=== PATIENT | male | born 1945 | race Caucasian/White ===

== ENCOUNTER 2018-10-23 13:12 | Observation (INO) | payer MEDICARE ==
--- NOTE | 2018-10-23 14:28 | EDM.PDOC ---
ED HPI GENERAL MEDICAL PROBLEM - General Chief Complaint: Abdominal Pain Stated Complaint: STOMACH IN PAIN PER PT Time Seen by Provider: 10/23/18 13:40 Source of Information: Reports: Patient, RN, RN Notes Reviewed History Limitations: Reports: No Limitations - History of Present Illness INITIAL COMMENTS - FREE TEXT/NARRATIVE: Pt to ER with c/o low abdominal pain which started this morning when he awoke. Patient states he feels he is constipated. States he has taken 5 stool softeners today, but no laxatives. Patient states he does not have his appendix , this has been removed. Patient states pain is 9/10. Admits to fever and chills , nausea. Onset: Today, Sudden Middle Abdomen Pain Score (Numeric/FACES): 7 - Related Data Allergies Allergy/AdvReac Type Severity Reaction Status Date / Time No Known Allergies Allergy Verified 10/23/18 16:50 Home Meds: Home Meds ALPRAZolam [Alprazolam] 0.5 mg PO BID PRN 10/23/18 [History] Hydrocodone/Acetaminophen [Hydrocodon-Acetaminophn 10-325] 1 - 2 tab PO Q6H PRN 10/23/18 [History] QUEtiapine [SEROquel] 50 mg PO BEDTIME PRN 10/23/18 [History] Past Medical History HEENT History: Reports: None Cardiovascular History: Reports: None Respiratory History: Reports: None Gastrointestinal History: Reports: Chronic Constipation Genitourinary History: Reports: None Musculoskeletal History: Reports: Back Pain, Chronic Neurological History: Reports: None Psychiatric History: Reports: Anxiety, Panic Attack Endocrine/Metabolic History: Reports: None Hematologic History: Reports: None Immunologic History: Reports: None Oncologic (Cancer) History: Reports: None Dermatologic History: Reports: None - Infectious Disease History Infectious Disease History: Reports: None - Past Surgical History Head Surgeries/Procedures: Reports: None GI Surgical History: Reports: Appendectomy Musculoskeletal Surgical History: Reports: Other (See Below) Other Musculoskeletal Surgeries/Procedures:: back surgery Social & Family History - Family History Family Medical History: Noncontributory - Tobacco Use Smoking Status *Q: Current Every Day Smoker Years of Tobacco use: 40 Packs/Tins Daily: 1 - Caffeine Use Caffeine Use: Reports: Coffee - Alcohol Use Days Per Week of Alcohol Use: 3 Number of Drinks Per Day: 5 Total Drinks Per Week: 15 Date of Last Drink: 10/22/18 - Recreational Drug Use Recreational Drug Use: No ED ROS GENERAL - Review of Systems Review Of Systems: ROS reveals no pertinent complaints other than HPI. ED EXAM, GI/ABD - Physical Exam Exam: See Below Exam Limited By: No Limitations General Appearance: Alert, WD/WN, Moderate Distress Eyes: Bilateral: Normal Appearance, EOMI Ears: Normal External Exam, Hearing Grossly Normal Nose: Normal Inspection Throat/Mouth: Normal Inspection, Normal Voice, No Airway Compromise Head: Atraumatic, Normocephalic Neck: Normal Inspection, Supple, Non-Tender, Full Range of Motion Respiratory/Chest: No Respiratory Distress, Lungs Clear, Normal Breath Sounds, No Accessory Muscle Use, Chest Non-Tender Cardiovascular: Normal Peripheral Pulses, Regular Rate, Rhythm, No Edema, No Gallop, No JVD, No Murmur, No Rub GI/Abdominal Exam: Normal Bowel Sounds, No Organomegaly, No Distention, Guarding , Rigid, Tender (Male) Exam: Deferred Rectal (Males) Exam: Deferred Back Exam: Normal Inspection, Full Range of Motion, NT Extremities: Normal Inspection, Normal Range of Motion, Non-Tender, Normal Capillary Refill, No Pedal Edema Neurological: Alert, Oriented, CN II-XII Intact, Normal Cognition, Normal Gait, Normal Reflexes, No Motor/Sensory Deficits Psychiatric: Normal Affect, Normal Mood, Anxious Skin Exam: Warm, Dry, Intact, Normal Color, No Rash Lymphatic: No Adenopathy Course - Vital Signs Last Recorded V/S: Last Vital Signs Temp 99.2 F 10/24/18 08:04 Pulse 80 10/24/18 08:04 Resp 20 10/24/18 08:04 BP 135/62 10/24/18 08:04 Pulse Ox 97 10/24/18 08:04 - Orders/Labs/Meds Orders: Medication Orders Hydrocodone Bitart/Acetaminophen ([place] 325-10 Mg) 1 tab PO Q6H PRN PRN Reason: Pain Last Admin: 10/24/18 06:38 Dose: 1 tab Admin: 10/23/18 17:46 Dose: 1 tab Alprazolam (Xanax) 0.5 mg PO BID PRN PRN Reason: anxiety Last Admin: 10/23/18 22:31 Dose: 0.5 mg Enoxaparin Sodium (Lovenox) 40 mg SUBCUT DAILY [facility] Last Admin: 10/24/18 09:27 Dose: 40 mg Admin: 10/23/18 17:36 Dose: 40 mg Polyethylene Glycol (Miralax) 17 gm PO DAILY [facility] Last Admin: 10/24/18 09:29 Dose: 17 gm Admin: 10/23/18 22:31 Dose: 17 gm Quetiapine Fumarate (Seroquel) 50 mg PO BEDTIME PRN PRN Reason: Sleep Last Admin: 10/23/18 22:31 Dose: 50 mg Senna/Docusate Sodium (Senna Plus) 2 tab PO DAILY [facility] Sodium Chloride (Saline Flush) 10 ml FLUSH ASDIRECTED PRN PRN Reason: Keep Vein Open Labs: Laboratory Tests 10/23/18 10/23/18 10/23/18 Range/Units 13:54 14:11 14:11 WBC 11.7 H (5.0-10.0) 10^3/uL RBC 4.26 L (4.6-6.2) 10^6/uL Hgb 14.7 (14.0-18.0) g/dL Hct 42.0 (40.0-54.0) % MCV 98.6 (80-100) fL MCH 34.5 H (27.0-34.0) pg MCHC 35.0 (33.0-35.0) g/dL Plt Count 273 (150-450) 10^3/uL Neut % (Auto) 87.3 H (42.2-75.2) % Lymph % (Auto) 5.6 L (20.5-50.1) % [place] % (Auto) 6.8 (2-8) % Eos % (Auto) 0.1 L (1.0-3.0) % Baso % (Auto) 0.2 (0.0-1.0) % Sodium 137 (135-145) mmol/L Potassium 3.9 (3.6-5.0) mmol/L Chloride 98 L (101-111) mmol/L Carbon Dioxide 28.0 (21.0-31.0) mmol/L Anion Gap 14.9 BUN 13 (7-18) mg/dL Creatinine 0.8 (0.6-1.3) mg/dL Est Cr Clr Drug Dosing 76.43 mL/min Estimated GFR (MDRD) > 60 BUN/Creatinine Ratio 16.25 Glucose 159 H (74-105) mg/dL Calcium 9.7 (8.4-10.2) mg/dl Total Bilirubin 0.6 (0.2-1.0) mg/dL AST 20 (10-42) IU/L ALT 15 (10-60) IU/L Alkaline Phosphatase 44 (42-121) IU/L Total Protein 7.3 (6.7-8.2) g/dl Albumin 4.4 (3.2-5.5) g/dl Globulin 2.9 Albumin/Globulin Ratio 1.52 Lipase (22-51) U/L Urine Color Yellow (YELLOW) Urine Appearance Cloudy (CLEAR) Urine pH 8.0 (5.0-9.0) Ur Specific [place] 1.015 (1.005-1.030) Urine Protein Negative (NEGATIVE) Urine Glucose (UA) Negative (NEGATIVE) Urine Ketones 15 H (NEGATIVE) Urine Occult Blood Negative (NEGATIVE) Urine Nitrite Negative (NEGATIVE) Urine Bilirubin Negative (NEGATIVE) Urine Urobilinogen 0.2 (0.2-1.0) mg/dL Ur Leukocyte Esterase Negative (NEGATIVE) 10/23/18 Range/Units 14:11 WBC (5.0-10.0) 10^3/uL RBC (4.6-6.2) 10^6/uL Hgb (14.0-18.0) g/dL Hct (40.0-54.0) % MCV (80-100) fL MCH (27.0-34.0) pg MCHC (33.0-35.0) g/dL Plt Count (150-450) 10^3/uL Neut % (Auto) (42.2-75.2) % Lymph % (Auto) (20.5-50.1) % [place] % (Auto) (2-8) % Eos % (Auto) (1.0-3.0) % Baso % (Auto) (0.0-1.0) % Sodium (135-145) mmol/L Potassium (3.6-5.0) mmol/L Chloride (101-111) mmol/L Carbon Dioxide (21.0-31.0) mmol/L Anion Gap BUN (7-18) mg/dL Creatinine (0.6-1.3) mg/dL Est Cr Clr Drug Dosing mL/min Estimated GFR (MDRD) BUN/Creatinine Ratio Glucose (74-105) mg/dL Calcium (8.4-10.2) mg/dl Total Bilirubin (0.2-1.0) mg/dL AST (10-42) IU/L ALT (10-60) IU/L Alkaline Phosphatase (42-121) IU/L Total Protein (6.7-8.2) g/dl Albumin (3.2-5.5) g/dl Globulin Albumin/Globulin Ratio Lipase 19 L (22-51) U/L Urine Color (YELLOW) Urine Appearance (CLEAR) Urine pH (5.0-9.0) Ur Specific [place] (1.005-1.030) Urine Protein (NEGATIVE) Urine Glucose (UA) (NEGATIVE) Urine Ketones (NEGATIVE) Urine Occult Blood (NEGATIVE) Urine Nitrite (NEGATIVE) Urine Bilirubin (NEGATIVE) Urine Urobilinogen (0.2-1.0) mg/dL Ur Leukocyte Esterase (NEGATIVE) Meds: Medications Generic Name Dose Route Start Last Admin Trade Name Freq PRN Reason Stop Dose Admin Hydrocodone Bitart/Acetaminophen 1 tab 10/23/18 16:44 10/24/18 06:38 [place] 325-10 Mg PO 1 tab Q6H PRN Administration Pain Alprazolam 0.5 mg 10/23/18 16:44 10/23/18 22:31 Xanax PO 0.5 mg BID PRN Administration anxiety Enoxaparin Sodium 40 mg 10/23/18 17:00 10/24/18 09:27 Lovenox SUBCUT 40 mg DAILY [facility] Administration Polyethylene Glycol 17 gm 10/23/18 16:44 10/24/18 09:29 Miralax PO 17 gm DAILY [facility] Administration Quetiapine Fumarate 50 mg 10/23/18 21:19 10/23/18 22:31 Seroquel PO 50 mg BEDTIME PRN Administration Sleep Senna/Docusate Sodium 2 tab 10/24/18 09:00 Senna Plus PO DAILY [facility] Sodium Chloride 10 ml 10/23/18 16:43 Saline Flush FLUSH ASDIRECTED PRN Keep Vein Open Discontinued Medications Generic Name Dose Route Start Last Admin Trade Name Freq PRN Reason Stop Dose Admin Hydromorphone HCl 1 mg 10/23/18 14:35 10/23/18 14:54 Dilaudid IVPUSH 10/23/18 14:36 1 mg ONETIME ONE Administration Sodium Chloride 1,000 mls @ 999 mls/hr 10/23/18 14:35 10/23/18 14:54 Normal Saline IV 10/23/18 15:35 999 mls/hr .BOLUS ONE Administration Iopamidol 75 ml 10/23/18 14:46 10/23/18 15:26 Isovue-300 (61%) IVPUSH 10/23/18 14:47 75 ml ONETIME ONE Administration Lactulose 20 gm 10/23/18 16:43 10/23/18 17:37 Cephulac PO 10/23/18 16:44 20 gm ONETIME ONE Administration Non-Formulary Medication 50 mg 10/23/18 16:51 Quetiapine PO ASDIRECTED PRN Sleep - Radiology Interpretation Free Text/Narrative:: Abdominal flat and upright xray: FINDINGS: Gastrointestinal tract: Normal. No bowel dilation. Intraperitoneal space: Normal. No free air. Bones/joints: Postoperative changes of the lumbar spine. Pedicle screws and rods from L4-S1. IMPRESSION: No acute findings. Thank you for allowing us to participate in the care of your patient. Dictated and Authenticated by: Harley Velasquez MD 10/23/2018 2:24 PM Central Time ([place] & [place]) CT Abdomen/Pelvis with contrast: FINDINGS: Limitations: Metallic artifact from patient's spinal hardware limits the examination. Liver: Hepatomegaly is present measuring 19 cm. Nonspecific hypodense lesion(s) within the liver most likely related to liver cysts measuring up to 1.3 cm. Gallbladder and bile ducts: Normal. No calcified stones. No ductal dilation. Pancreas: Normal. No ductal dilation. Spleen: Normal. No splenomegaly. Adrenals: Normal. No mass. Kidneys and ureters: Left renal cyst(s) with the largest less than a centimeter. Stomach and bowel: There are changes of diverticulosis without evidence for diverticulitis. There is a short segment of nondistended sigmoid colon with circumferential wall thickening. This may simply be secondary to underdistention. Stricture cannot be excluded. Large volume of stool in the colon. Appendix: No evidence of appendicitis. Intraperitoneal space: Unremarkable. No free air. No significant fluid collection. Vasculature: Atheromatous calcifications of the aorta are present. Lymph nodes: Unremarkable. No enlarged lymph nodes. Bladder: Nonspecific bladder wall thickening. Correlate for possible cystitis. Bladder diverticuli are present. Reproductive: Unremarkable as visualized. Bones/joints: Postoperative changes of the lumbar spine. Pedicle screws and rods from L4-S1. Soft tissues: Unremarkable. IMPRESSION: 1. Nonspecific bladder wall thickening. Correlate for possible cystitis. 2. Diverticulosis. 3. There is a short segment of nondistended sigmoid colon with circumferential wall thickening. This may simply be secondary to underdistention. Stricture cannot be excluded. 4. Large volume of stool in the colon. Thank you for allowing us to participate in the care of your patient. Dictated and Authenticated by: Harley Velasquez MD 10/23/2018 3:34 PM Central Time ([place] & [place]) See rad report - Re-Assessments/Exams Free Text/Narrative Re-Assessment/Exam: 10/24/18 09:31 Discussed patient case with Dr. Garcia who agreed to accept the patient for observation to the medical floor. Departure - Departure Time of Disposition: 16:24 Disposition: Refer to Observation Condition: Fair Clinical Impression: Abdominal pain Qualifiers: Abdominal location: lower abdomen, unspecified Qualified Code(s): R10.30 - Lower abdominal pain, unspecified Constipation Qualifiers: Constipation type: drug induced constipation Qualified Code(s): K59.03 - Drug induced constipation - Discharge Information *PRESCRIPTION DRUG MONITORING PROGRAM REVIEWED*: No *COPY OF PRESCRIPTION DRUG MONITORING REPORT IN PATIENT ALINA: No
[2018-10-23] MEDS ORDERED: Sodium Chloride 0.9% 1,000 ML IV ONE (14:35)
[2018-10-23] MEDS ORDERED: HYDROmorphone 1 MG/ML Syringe IVPUSH ONE (14:35)
[2018-10-23 14:40] LABS: ANION GAP 14.9; CHLORIDE,CL 98 mmol/L (101-111); SODIUM,NA 137 mmol/L (135-145)
[2018-10-23] MEDS ORDERED: Iopamidol 612 MG/ML 75 ML Bottle IVPUSH ONE (14:46)
[2018-10-23] MEDS ORDERED: Sodium Chloride 0.9% 10 ML Syringe FLUSH PRN (16:43)
[2018-10-23] MEDS ORDERED: Lactulose Soln 10 GM/15 ML 30 ML UD Cup PO ONE (16:43)
[2018-10-23] MEDS ORDERED: QUETIAPINE 50 MG PO PRN (16:51)
--- NOTE | 2018-10-23 16:59 | PCM.HP ---
H&P History of Present Illness - General Date of Service: 10/23/18 Admit Problem/Dx: Admission Diagnosis/Problem Admission Diagnosis/Problem Constipation due to opioid therapy Source of Information: Patient History Limitations: Reports: No Limitations - History of Present Illness Initial Comments - Free Text/Narative: 73 yo M with PMH of chronic back pain s/p surgery and on chronic pain meds daily who presents with abdominal pain of one day duration. -Location: umbilical, suprapubic -Duration: one day -Timing: intermittent -Quality: dull ache -Aggrevating Factors: none -Relieving Factors: none -Severity: 11/18 -Associated symptoms: nausea Pertinent negative: Denies any vomiting, chest pain, SOB, urinary symptoms CT scan shows constipation, no features of intestinal obstruction Middle Abdomen Pain Score (Numeric/FACES): 7 - Related Data Allergies/Adverse Reactions: Allergies Allergy/AdvReac Type Severity Reaction Status Date / Time No Known Allergies Allergy Verified 10/23/18 16:50 Home Medications: Home Meds ALPRAZolam [Alprazolam] 0.5 mg PO BID PRN 10/23/18 [History] Hydrocodone/Acetaminophen [Hydrocodon-Acetaminophn 10-325] 1 - 2 tab PO Q6H PRN 10/23/18 [History] QUEtiapine [SEROquel] 50 mg PO PRN 10/23/18 [History] Past Medical History HEENT History: Reports: None Cardiovascular History: Reports: None Respiratory History: Reports: None Gastrointestinal History: Reports: Chronic Constipation Genitourinary History: Reports: None Musculoskeletal History: Reports: Back Pain, Chronic Neurological History: Reports: None Psychiatric History: Reports: Anxiety, Panic Attack Endocrine/Metabolic History: Reports: None Hematologic History: Reports: None Immunologic History: Reports: None Oncologic (Cancer) History: Reports: None Dermatologic History: Reports: None - Infectious Disease History Infectious Disease History: Reports: None - Past Surgical History Head Surgeries/Procedures: Reports: None GI Surgical History: Reports: Appendectomy Musculoskeletal Surgical History: Reports: Other (See Below) Other Musculoskeletal Surgeries/Procedures:: back surgery Social & Family History - Family History Family Medical History: Noncontributory - Tobacco Use Smoking Status *Q: Current Every Day Smoker Years of Tobacco use: 40 Packs/Tins Daily: 1 Second Hand Smoke Exposure: No - Caffeine Use Caffeine Use: Reports: Soda - Alcohol Use Days Per Week of Alcohol Use: 7 Number of Drinks Per Day: 5 Total Drinks Per Week: 35 Date of Last Drink: 10/22/18 - Recreational Drug Use Recreational Drug Use: No H&P Review of Systems - Review of Systems: Review Of Systems: ROS reveals no pertinent complaints other than HPI. General: Denies: Fever HEENT: Reports: No Symptoms Pulmonary: Reports: No Symptoms Cardiovascular: Reports: No Symptoms Gastrointestinal: Reports: Abdominal Pain Genitourinary: Reports: No Symptoms. Denies: Dysuria Musculoskeletal: Reports: No Symptoms Exam - Exam Exam: See Below - Vital Signs Vital Signs: Last Vital Signs Temp 37.0 C 10/23/18 16:05 Pulse 68 10/23/18 16:05 Resp 16 10/23/18 16:05 BP 157/72 H 10/23/18 16:05 Pulse Ox 98 10/23/18 16:05 Weight: 65.136 kg - Exam General: Alert, Oriented HEENT: Conjunctiva Clear, EACs Clear Neck: Supple, Trachea Midline Lungs: Clear to Auscultation, Normal Respiratory Effort Cardiovascular: Regular Rate, Regular Rhythm GI/Abdominal Exam: Normal Bowel Sounds, Tender. No: Rigid, Rebound Extremities: Normal Inspection, Normal Range of Motion, Non-Tender, No Pedal Edema - Patient Data Lab Results Last 24 hrs: Laboratory Results - last 24 hr 10/23/18 10/23/18 10/23/18 Range/Units 13:54 14:11 14:11 WBC 11.7 H (5.0-10.0) 10^3/uL RBC 4.26 L (4.6-6.2) 10^6/uL Hgb 14.7 (14.0-18.0) g/dL Hct 42.0 (40.0-54.0) % MCV 98.6 (80-100) fL MCH 34.5 H (27.0-34.0) pg MCHC 35.0 (33.0-35.0) g/dL Plt Count 273 (150-450) 10^3/uL Neut % (Auto) 87.3 H (42.2-75.2) % Lymph % (Auto) 5.6 L (20.5-50.1) % [place] % (Auto) 6.8 (2-8) % Eos % (Auto) 0.1 L (1.0-3.0) % Baso % (Auto) 0.2 (0.0-1.0) % Sodium 137 (135-145) mmol/L Potassium 3.9 (3.6-5.0) mmol/L Chloride 98 L (101-111) mmol/L Carbon Dioxide 28.0 (21.0-31.0) mmol/L Anion Gap 14.9 BUN 13 (7-18) mg/dL Creatinine 0.8 (0.6-1.3) mg/dL Est Cr Clr Drug Dosing 76.43 mL/min Estimated GFR (MDRD) > 60 BUN/Creatinine Ratio 16.25 Glucose 159 H (74-105) mg/dL Calcium 9.7 (8.4-10.2) mg/dl Total Bilirubin 0.6 (0.2-1.0) mg/dL AST 20 (10-42) IU/L ALT 15 (10-60) IU/L Alkaline Phosphatase 44 (42-121) IU/L Total Protein 7.3 (6.7-8.2) g/dl Albumin 4.4 (3.2-5.5) g/dl Globulin 2.9 Albumin/Globulin Ratio 1.52 Lipase (22-51) U/L Urine Color Yellow (YELLOW) Urine Appearance Cloudy (CLEAR) Urine pH 8.0 (5.0-9.0) Ur Specific [place] 1.015 (1.005-1.030) Urine Protein Negative (NEGATIVE) Urine Glucose (UA) Negative (NEGATIVE) Urine Ketones 15 H (NEGATIVE) Urine Occult Blood Negative (NEGATIVE) Urine Nitrite Negative (NEGATIVE) Urine Bilirubin Negative (NEGATIVE) Urine Urobilinogen 0.2 (0.2-1.0) mg/dL Ur Leukocyte Esterase Negative (NEGATIVE) 10/23/18 Range/Units 14:11 WBC (5.0-10.0) 10^3/uL RBC (4.6-6.2) 10^6/uL Hgb (14.0-18.0) g/dL Hct (40.0-54.0) % MCV (80-100) fL MCH (27.0-34.0) pg MCHC (33.0-35.0) g/dL Plt Count (150-450) 10^3/uL Neut % (Auto) (42.2-75.2) % Lymph % (Auto) (20.5-50.1) % [place] % (Auto) (2-8) % Eos % (Auto) (1.0-3.0) % Baso % (Auto) (0.0-1.0) % Sodium (135-145) mmol/L Potassium (3.6-5.0) mmol/L Chloride (101-111) mmol/L Carbon Dioxide (21.0-31.0) mmol/L Anion Gap BUN (7-18) mg/dL Creatinine (0.6-1.3) mg/dL Est Cr Clr Drug Dosing mL/min Estimated GFR (MDRD) BUN/Creatinine Ratio Glucose (74-105) mg/dL Calcium (8.4-10.2) mg/dl Total Bilirubin (0.2-1.0) mg/dL AST (10-42) IU/L ALT (10-60) IU/L Alkaline Phosphatase (42-121) IU/L Total Protein (6.7-8.2) g/dl Albumin (3.2-5.5) g/dl Globulin Albumin/Globulin Ratio Lipase 19 L (22-51) U/L Urine Color (YELLOW) Urine Appearance (CLEAR) Urine pH (5.0-9.0) Ur Specific [place] (1.005-1.030) Urine Protein (NEGATIVE) Urine Glucose (UA) (NEGATIVE) Urine Ketones (NEGATIVE) Urine Occult Blood (NEGATIVE) Urine Nitrite (NEGATIVE) Urine Bilirubin (NEGATIVE) Urine Urobilinogen (0.2-1.0) mg/dL Ur Leukocyte Esterase (NEGATIVE) Result Diagrams: 10/23/18 14:11 10/23/18 14:11 Problem List Initiated/Reviewed/Updated: Yes Orders Last 24hrs: Active Orders 24 hr Category Date Time Status Admission Diagnosis [ADT] Routine ADT 10/23/18 16:21 Ordered Patient Status [ADT] Routine ADT 10/23/18 16:21 Active Patient Status [ADT] Routine ADT 10/23/18 16:43 Active Ambulate [RC] ASDIRECTED Care 10/23/18 16:43 Active Bladder Scan [RC] ASDIRECTED Care 10/23/18 13:48 Active Communication Order [RC] ROUTINE Care 10/23/18 16:46 Active Enema [RC] ASDIRECTED Care 10/23/18 16:45 Active Height and Weight [RC] DAILY Care 10/23/18 16:43 Active Oxygen Therapy [RC] PRN Care 10/23/18 16:43 Active Up With Assistance [RC] ASDIRECTED Care 10/23/18 16:43 Active VTE/DVT Education [RC] PER UNIT ROUTINE Care 10/23/18 16:43 Active Vital Signs [RC] Q4H Care 10/23/18 16:43 Active OT Evaluation and Treatment [CONS] Routine Cons 10/23/18 16:43 Active PT Evaluation and Treatment [CONS] Routine Cons 10/23/18 16:43 Active Regular Diet [DIET] Diet 10/23/18 Breakfast Active ALPRAZolam [Xanax] Med 10/23/18 16:44 Ordered 0.5 mg PO BID PRN Acetaminophen/HYDROcodone [[place] 325-10 MG] Med 10/23/18 16:44 Ordered 1 tab PO Q6H PRN Docusate Sodium/Sennosides [Senna Plus] Med 10/24/18 09:00 Ordered 2 tab PO DAILY Enoxaparin [Lovenox] Med 10/23/18 17:00 Ordered 40 mg SUBCUT DAILY Lactulose [Cephulac] Med 10/23/18 16:43 Once 20 gm PO ONETIME ONE Polyethylene Glycol 3350 [MiraLAX] Med 10/23/18 16:44 Ordered 17 gm PO DAILY QUEtiapine Med 10/23/18 16:44 Unverified DOSE UNIT RTE FREQ PRN Sodium Chloride 0.9% [Saline Flush] Med 10/23/18 16:43 Ordered 10 ml FLUSH ASDIRECTED PRN Peripheral IV Insertion Adult [OM.PC] Routine Oth 10/23/18 16:43 Ordered Saline Lock Insert [OM.PC] Routine Oth 10/23/18 16:43 Ordered Resuscitation Status Routine Resus Stat 10/23/18 16:43 Ordered Medication Orders Hydrocodone Bitart/Acetaminophen ([place] 325-10 Mg) 1 tab PO Q6H PRN PRN Reason: Pain Alprazolam (Xanax) 0.5 mg PO BID PRN PRN Reason: Sleep Enoxaparin Sodium (Lovenox) 40 mg SUBCUT DAILY [facility]TIE Lactulose (Cephulac) 20 gm PO ONETIME ONE Stop: 10/23/18 16:44 Polyethylene Glycol (Miralax) 17 gm PO DAILY [facility] Senna/Docusate Sodium (Senna Plus) 2 tab PO DAILY [facility] Sodium Chloride (Saline Flush) 10 ml FLUSH ASDIRECTED PRN PRN Reason: Keep Vein Open Assessment/Plan Comment:: #Abdominal pain #Severe Constipation 2/2 chronic opiate use #Chronic back pain Lipase negative Start enemas Bowel regimen Counseled patient on reducing opioid pain meds, switch to tylenol, trial of PT/ OT #DVT ppx SC lovenox
[2018-10-23] MEDS: Enoxaparin 40 MG/0.4 ML Syringe SUBCUT SCH (17:36)
[2018-10-23] MEDS: Acetaminophen/HYDROcodone 325-10 MG Tab PO PRN (17:46)
[2018-10-23] MEDS ORDERED: QUEtiapine 25 MG Tab PO PRN (21:19)
[2018-10-23] MEDS: Polyethylene Glycol 3350 Powder 17 GM Packet PO SCH (22:31)
[2018-10-23] MEDS: ALPRAZolam 0.5 MG Tab PO PRN (22:31)
[2018-10-24] MEDS: Acetaminophen/HYDROcodone 325-10 MG Tab PO PRN ×2 (06:38→12:52)
[2018-10-24] MEDS: Enoxaparin 40 MG/0.4 ML Syringe SUBCUT SCH (09:27)
[2018-10-24] MEDS: Polyethylene Glycol 3350 Powder 17 GM Packet PO SCH (09:29)
[2018-10-24] MEDS: ALPRAZolam 0.5 MG Tab PO PRN (09:36)
[2018-10-24] MEDS ORDERED: Methylnaltrexone 12 MG/0.6 ML SDV SUBCUT ONE ×2 (10:05→10:07)
--- NOTE | 2018-10-24 10:05 | PCM.PN ---
- General Info Date of Service: 10/24/18 Admission Dx/Problem (Free Text): Admission Diagnosis/Problem Admission Diagnosis/Problem Constipation due to opioid therapy Subjective Update: No BMs yet despite enema, bowel regimen Pt still has abdominal pain as prev described - Review of Systems General: Denies: Fever HEENT: Reports: No Symptoms Pulmonary: Reports: No Symptoms Cardiovascular: Reports: No Symptoms Gastrointestinal: Reports: Abdominal Pain Genitourinary: Reports: No Symptoms Musculoskeletal: Reports: No Symptoms Skin: Reports: No Symptoms - Patient Data Vitals - Most Recent: Last Vital Signs Temp 37.3 C 10/24/18 08:04 Pulse 80 10/24/18 08:04 Resp 20 10/24/18 08:04 BP 135/62 10/24/18 08:04 Pulse Ox 97 10/24/18 08:04 Weight - Most Recent: 63.73 kg I&O - Last 24 Hours: Intake & Output 10/23/18 10/24/18 10/24/18 22:59 06:59 14:59 Intake Total 200 Balance 200 Lab Results Last 24 Hours: Laboratory Results - last 24 hr 10/23/18 10/23/18 10/23/18 Range/Units 13:54 14:11 14:11 WBC 11.7 H (5.0-10.0) 10^3/uL RBC 4.26 L (4.6-6.2) 10^6/uL Hgb 14.7 (14.0-18.0) g/dL Hct 42.0 (40.0-54.0) % MCV 98.6 (80-100) fL MCH 34.5 H (27.0-34.0) pg MCHC 35.0 (33.0-35.0) g/dL Plt Count 273 (150-450) 10^3/uL Neut % (Auto) 87.3 H (42.2-75.2) % Lymph % (Auto) 5.6 L (20.5-50.1) % Winn % (Auto) 6.8 (2-8) % Eos % (Auto) 0.1 L (1.0-3.0) % Baso % (Auto) 0.2 (0.0-1.0) % Sodium 137 (135-145) mmol/L Potassium 3.9 (3.6-5.0) mmol/L Chloride 98 L (101-111) mmol/L Carbon Dioxide 28.0 (21.0-31.0) mmol/L Anion Gap 14.9 BUN 13 (7-18) mg/dL Creatinine 0.8 (0.6-1.3) mg/dL Est Cr Clr Drug Dosing 76.43 mL/min Estimated GFR (MDRD) > 60 BUN/Creatinine Ratio 16.25 Glucose 159 H (74-105) mg/dL Calcium 9.7 (8.4-10.2) mg/dl Total Bilirubin 0.6 (0.2-1.0) mg/dL AST 20 (10-42) IU/L ALT 15 (10-60) IU/L Alkaline Phosphatase 44 (42-121) IU/L Total Protein 7.3 (6.7-8.2) g/dl Albumin 4.4 (3.2-5.5) g/dl Globulin 2.9 Albumin/Globulin Ratio 1.52 Lipase (22-51) U/L Urine Color Yellow (YELLOW) Urine Appearance Cloudy (CLEAR) Urine pH 8.0 (5.0-9.0) Ur Specific [place] 1.015 (1.005-1.030) Urine Protein Negative (NEGATIVE) Urine Glucose (UA) Negative (NEGATIVE) Urine Ketones 15 H (NEGATIVE) Urine Occult Blood Negative (NEGATIVE) Urine Nitrite Negative (NEGATIVE) Urine Bilirubin Negative (NEGATIVE) Urine Urobilinogen 0.2 (0.2-1.0) mg/dL Ur Leukocyte Esterase Negative (NEGATIVE) 10/23/18 Range/Units 14:11 WBC (5.0-10.0) 10^3/uL RBC (4.6-6.2) 10^6/uL Hgb (14.0-18.0) g/dL Hct (40.0-54.0) % MCV (80-100) fL MCH (27.0-34.0) pg MCHC (33.0-35.0) g/dL Plt Count (150-450) 10^3/uL Neut % (Auto) (42.2-75.2) % Lymph % (Auto) (20.5-50.1) % [place] % (Auto) (2-8) % Eos % (Auto) (1.0-3.0) % Baso % (Auto) (0.0-1.0) % Sodium (135-145) mmol/L Potassium (3.6-5.0) mmol/L Chloride (101-111) mmol/L Carbon Dioxide (21.0-31.0) mmol/L Anion Gap BUN (7-18) mg/dL Creatinine (0.6-1.3) mg/dL Est Cr Clr Drug Dosing mL/min Estimated GFR (MDRD) BUN/Creatinine Ratio Glucose (74-105) mg/dL Calcium (8.4-10.2) mg/dl Total Bilirubin (0.2-1.0) mg/dL AST (10-42) IU/L ALT (10-60) IU/L Alkaline Phosphatase (42-121) IU/L Total Protein (6.7-8.2) g/dl Albumin (3.2-5.5) g/dl Globulin Albumin/Globulin Ratio Lipase 19 L (22-51) U/L Urine Color (YELLOW) Urine Appearance (CLEAR) Urine pH (5.0-9.0) Ur Specific [place] (1.005-1.030) Urine Protein (NEGATIVE) Urine Glucose (UA) (NEGATIVE) Urine Ketones (NEGATIVE) Urine Occult Blood (NEGATIVE) Urine Nitrite (NEGATIVE) Urine Bilirubin (NEGATIVE) Urine Urobilinogen (0.2-1.0) mg/dL Ur Leukocyte Esterase (NEGATIVE) Med Orders - Current: Current Medications Hydrocodone Bitart/Acetaminophen ([place]son 325-10 Mg) 1 tab PO Q6H PRN PRN Reason: Pain Last Admin: 10/24/18 06:38 Dose: 1 tab Alprazolam (Xanax) 0.5 mg PO BID PRN PRN Reason: anxiety Last Admin: 10/24/18 09:36 Dose: 0.5 mg Enoxaparin Sodium (Lovenox) 40 mg SUBCUT DAILY [facility] Last Admin: 10/24/18 09:27 Dose: 40 mg Polyethylene Glycol (Miralax) 17 gm PO DAILY [facility] Last Admin: 10/24/18 09:29 Dose: 17 gm Quetiapine Fumarate (Seroquel) 50 mg PO BEDTIME PRN PRN Reason: Sleep Last Admin: 10/23/18 22:31 Dose: 50 mg Senna/Docusate Sodium (Senna Plus) 2 tab PO DAILY [facility] Last Admin: 10/24/18 09:30 Dose: 2 tab Sodium Chloride (Saline Flush) 10 ml FLUSH ASDIRECTED PRN PRN Reason: Keep Vein Open Discontinued Medications Hydromorphone HCl (Dilaudid) 1 mg IVPUSH ONETIME ONE Stop: 10/23/18 14:36 Last Admin: 10/23/18 14:54 Dose: 1 mg Sodium Chloride (Normal Saline) 1,000 mls @ 999 mls/hr IV .BOLUS ONE Stop: 10/23/18 15:35 Last Admin: 10/23/18 14:54 Dose: 999 mls/hr Iopamidol (Isovue-300 (61%)) 75 ml IVPUSH ONETIME ONE Stop: 10/23/18 14:47 Last Admin: 10/23/18 15:26 Dose: 75 ml Lactulose (Cephulac) 20 gm PO ONETIME ONE Stop: 10/23/18 16:44 Last Admin: 10/23/18 17:37 Dose: 20 gm Non-Formulary Medication (Quetiapine) 50 mg PO ASDIRECTED PRN PRN Reason: Sleep - Exam General: Alert, Oriented HEENT: Pupils Equal, Pupils Reactive Neck: Supple Lungs: Clear to Auscultation, Normal Respiratory Effort Cardiovascular: Regular Rate, Regular Rhythm GI/Abdominal Exam: Tender Extremities: Normal Inspection, Normal Range of Motion, Non-Tender, No Pedal Edema - Problem List Review Problem List Initiated/Reviewed/Updated: Yes - My Orders Last 24 Hours: My Active Orders 10/23/18 16:43 Patient Status [ADT] Routine Ambulate [RC] ASDIRECTED Height and Weight [RC] .0600 Oxygen Therapy [RC] PRN Up With Assistance [RC] ASDIRECTED VTE/DVT Education [RC] PER UNIT ROUTINE Vital Signs [RC] Q4H OT Evaluation and Treatment [CONS] Routine PT Evaluation and Treatment [CONS] Routine Sodium Chloride 0.9% [Saline Flush] 10 ml FLUSH ASDIRECTED PRN Peripheral IV Insertion Adult [OM.PC] Routine Saline Lock Insert [OM.PC] Routine Resuscitation Status Routine 10/23/18 16:44 ALPRAZolam [Xanax] 0.5 mg PO BID PRN Acetaminophen/HYDROcodone [Dawson 325-10 MG] 1 tab PO Q6H PRN Polyethylene Glycol 3350 [MiraLAX] 17 gm PO DAILY 10/23/18 16:45 Enema [RC] ASDIRECTED 10/23/18 16:46 Communication Order [RC] ROUTINE 10/23/18 17:00 Enoxaparin [Lovenox] 40 mg SUBCUT DAILY 10/23/18 21:19 QUEtiapine [SEROquel] 50 mg PO BEDTIME PRN 10/24/18 09:00 Docusate Sodium/Sennosides [Senna Plus] 2 tab PO DAILY - Plan Plan:: #Abdominal pain #Severe Constipation 2/2 chronic opiate use #Chronic back pain Lipase negative Trial of relistor Fleet enema Bowel regimen Counseled patient on reducing opioid pain meds, switch to tylenol, trial of PT/ OT #DVT ppx SC lovenox
--- NOTE | 2018-10-24 16:31 | PCM.DCSUM1 ---
Discharge Summary - Hospital Course Free Text/Narrative:: 73 yo M with PMH of chronic back pain s/p surgery and on chronic pain meds daily who presents with abdominal pain of one day duration. CT scan shows constipation, no features of intestinal obstruction Patient was started on enemas, multiple laxatives. He had small BMs and flatus. Was also given a dose of relistor during stay. Abdominal pain improved. He requested a discharge home and we were OK discharging him on laxatives. Follow up with PCP Diagnosis: Stroke: No Modified Galindo Scale: No Symptoms at All Modified Galindo Scale Score: 0 - Discharge Data Discharge Date: 10/24/18 Discharge Disposition: Home, Self-Care 01 Condition: Good - Referral to Home Health Primary Care Physician: PCP None - Patient Summary/Data Consults: Consultations 10/23/18 16:43 OT Evaluation and Treatment [CONS] Routine PT Evaluation and Treatment [CONS] Routine - Patient Instructions Diet: Usual Diet as Tolerated Activity: As Tolerated - Discharge Plan *PRESCRIPTION DRUG MONITORING PROGRAM REVIEWED*: No *COPY OF PRESCRIPTION DRUG MONITORING REPORT IN PATIENT ALINA: No Prescriptions/Med Rec: Docusate Sodium/Sennosides [Senokot-S] 1 each PO BID 30 Days #60 tablet Lactulose 10 gm PO DAILY 30 Days #30 ml Polyethylene Glycol 3350 [MiraLAX] 17 gm PO DAILY 30 Days #30 packet Home Medications: Home Meds ALPRAZolam [Alprazolam] 0.5 mg PO BID PRN 10/23/18 [History] Hydrocodone/Acetaminophen [Hydrocodon-Acetaminophn 10-325] 1 - 2 tab PO Q6H PRN 10/23/18 [History] QUEtiapine [SEROquel] 50 mg PO BEDTIME PRN 10/23/18 [History] Docusate Sodium/Sennosides [Senokot-S] 1 each PO BID 30 Days #60 tablet [Rx] Lactulose 10 gm PO DAILY 30 Days #30 ml 10/24/18 [Rx] Polyethylene Glycol 3350 [MiraLAX] 17 gm PO DAILY 30 Days #30 packet 10/24/18 [ Rx] Patient Handouts: Constipation, Adult, [id number], Chronic Constipation Referrals: PCP,None [Primary Care Provider] - - Discharge Summary/Plan Comment DC Time >30 min.: No - Patient Data Vitals - Most Recent: Last Vital Signs Temp 37.4 C 10/24/18 15:50 Pulse 80 10/24/18 15:50 Resp 16 10/24/18 15:50 BP 122/64 10/24/18 15:50 Pulse Ox 96 10/24/18 15:50 Weight - Most Recent: 63.73 kg I&O - Last 24 hours: Intake & Output 10/24/18 10/24/18 10/24/18 06:59 14:59 22:59 Intake Total 700 Balance 700 Med Orders - Current: Current Medications Hydrocodone Bitart/Acetaminophen ([place] 325-10 Mg) 1 tab PO Q6H PRN PRN Reason: Pain Last Admin: 10/24/18 12:52 Dose: 1 tab Alprazolam (Xanax) 0.5 mg PO BID PRN PRN Reason: anxiety Last Admin: 10/24/18 09:36 Dose: 0.5 mg Enoxaparin Sodium (Lovenox) 40 mg SUBCUT DAILY [facility] Last Admin: 10/24/18 09:27 Dose: 40 mg Polyethylene Glycol (Miralax) 17 gm PO DAILY [facility] Last Admin: 10/24/18 09:29 Dose: 17 gm Quetiapine Fumarate (Seroquel) 50 mg PO BEDTIME PRN PRN Reason: Sleep Last Admin: 10/23/18 22:31 Dose: 50 mg Senna/Docusate Sodium (Senna Plus) 2 tab PO DAILY [facility] Last Admin: 10/24/18 09:30 Dose: 2 tab Sodium Chloride (Saline Flush) 10 ml FLUSH ASDIRECTED PRN PRN Reason: Keep Vein Open Discontinued Medications Hydromorphone HCl (Dilaudid) 1 mg IVPUSH ONETIME ONE Stop: 10/23/18 14:36 Last Admin: 10/23/18 14:54 Dose: 1 mg Sodium Chloride (Normal Saline) 1,000 mls @ 999 mls/hr IV .BOLUS ONE Stop: 10/23/18 15:35 Last Admin: 10/23/18 14:54 Dose: 999 mls/hr Iopamidol (Isovue-300 (61%)) 75 ml IVPUSH ONETIME ONE Stop: 10/23/18 14:47 Last Admin: 10/23/18 15:26 Dose: 75 ml Lactulose (Cephulac) 20 gm PO ONETIME ONE Stop: 10/23/18 16:44 Last Admin: 10/23/18 17:37 Dose: 20 gm Methylnaltrexone [place] (Relistor) 8 mg SUBCUT ONETIME ONE Stop: 10/24/18 10:06 Last Admin: 10/24/18 10:13 Dose: Not Given Methylnaltrexone [place] (Relistor) 12 mg SUBCUT ONETIME ONE Stop: 10/24/18 10:08 Last Admin: 10/24/18 10:30 Dose: 12 mg Non-Formulary Medication (Quetiapine) 50 mg PO ASDIRECTED PRN PRN Reason: Sleep
== END 2018-10-24 16:40 | disposition home or self-care (01) ==
LOC: DL.ED 13:12 → DL.MS 16:21 → DL.ED 16:23
PROVIDERS: ADMIT Hospitalist; ATTEND Hospitalist
DX: K59.03 Drug induced constipation (principal); T40.2X5A Adverse effect of other opioids, initial encounter; F17.200 Nicotine dependence, unspecified, uncomplicated; F41.9 Anxiety disorder, unspecified; G89.29 Other chronic pain; M54.9 Dorsalgia, unspecified
CPT/HCPCS: 36415; 74019; 74177; 80053; 81003; 83690; 85025; 96361; 96374; 99285; A9270; J1170; J1650; J2212; J7030; Q9967; 96372; G0378

== ENCOUNTER 2018-11-25 08:42 | Day surgery (SDC) | payer MEDICARE, OTHER ==
[~2018-11-25 08:42] MED LIST: Midazolam 1 MG/ML 2 ML SDV ONE; Morphine 2 MG/ML Syringe ONE; Sodium Chloride 0.9% 10 ML Syringe FLUSH SCH
[2018-11-25] MEDS ORDERED: Midazolam 1 MG/ML 2 ML SDV IV ONE ×6 (08:43→09:25)
[2018-11-25] MEDS ORDERED: Morphine 2 MG/ML Syringe IV ONE (08:43)
[2018-11-25] MEDS ORDERED: Dextrose 5%-0.45% NaCl 1,000 ML IV SCH (09:00)
[2018-11-25] MEDS ORDERED: Morphine 2 MG/ML Syringe ONE (09:20)
[2018-11-25] MEDS ORDERED: Morphine 4 MG/ML Syringe ONE (09:25)
--- NOTE | 2018-11-25 12:09 | OR ---
DATE: 11/25/2018 PREOPERATIVE DIAGNOSIS: Abdominal pain. POSTOPERATIVE DIAGNOSIS: Abdominal pain. PROCEDURE: Attempted colonoscopy. ANESTHESIA: Conscious sedation with IV morphine and Versed. SPECIMEN: None. 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 RECOMMENDATION: This patient will require surgical intervention. INDICATION FOR PROCEDURE: This 73-year-old male had been referred to [facility] for abdominal pain and weight loss. He thinks he has had a colonoscopy over 10 years ago; however, now workup has been negative, which to- date is a CAT scan. Significant past medical history is prostate cancer that underwent 40 sessions of radiation. PROCEDURE IN DETAIL: After adequate preparation, a colonoscope was inserted into the rectum. This was passed up to the upper rectum, and at 10 cm, there was a significant stricture. A photograph of this was taken. I could not advance the scope through, and I changed the colonoscope to a gastroscope and I reinserted that scope. However, the stricture is significant enough, I could not pass it through the stricture. The scope was removed, and the patient taken to recovery room, [facility] /[id number]
== END 2018-11-25 11:14 | disposition home or self-care (01) ==
LOC: DL.ENDO 08:42
PROVIDERS: ATTEND Surgery
DX: K62.4 Stenosis of anus and rectum (principal); R10.9 Unspecified abdominal pain; R63.4 Abnormal weight loss; Z85.46 Personal history of malignant neoplasm of prostate
CPT/HCPCS: 45330; J2250; J2270; J7042; G0121

== ENCOUNTER 2019-01-09 21:04 | Emergency (ER) | payer MEDICARE, MEDICAID ==
[2019-01-09] MEDS: Ondansetron 4 MG/2 ML SDV IV ONE (21:18)
[2019-01-09] MEDS: HYDROmorphone 1 MG/ML Syringe IVPUSH ONE ×2 (21:19→21:46)
[2019-01-09] MEDS: Sodium Chloride 0.9% 1,000 ML IV ONE (21:20)
[2019-01-09 21:37] LABS: ANION GAP 13.7; CHLORIDE,CL 101 mmol/L (101-111); SODIUM,NA 139 mmol/L (135-145)
[2019-01-09] MEDS: Iopamidol 612 MG/ML 75 ML Bottle IVPUSH ONE (21:42)
--- NOTE | 2019-01-09 22:07 | EDM.PDOC ---
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 Colostomy firm stool this am and continued stool in bag throu afternoon, None in past few hours. Pain crampy. [place] chills last melissa. intermittent nausea with pain no vomiting. Upper Abdomen Pain Score (Numeric/FACES): 7 - Related Data Allergies Allergy/AdvReac Type Severity Reaction Status Date / Time fentanyl Allergy Itching Verified 01/09/19 22:07 lorazepam Allergy Cannot Verified 01/09/19 22:07 Remember mirtazapine Allergy Other Verified 01/09/19 22:07 paroxetine [From Paxil] Allergy Cannot Verified 01/09/19 22:07 Remember trazodone Allergy Cannot Verified 01/09/19 22:07 Remember zolpidem [From Ambien] Allergy Cannot Verified 01/09/19 22:07 Remember Home Meds: Home Meds Hydrocodone/Acetaminophen [Hydrocodon-Acetaminophn 10-325] 1 - 2 tab PO Q6H PRN 10/23/18 [History] QUEtiapine [SEROquel] 50 mg PO BEDTIME PRN 10/23/18 [History] Docusate Sodium/Sennosides [Senokot-S] 1 each PO BID 30 Days #60 tablet [Rx] Polyethylene Glycol 3350 [MiraLAX] 17 gm PO DAILY 30 Days #30 packet 10/24/18 [ Rx] ALPRAZolam [Alprazolam] 0.5 mg PO BID 11/23/18 [History] Ibuprofen 400 mg PO ASDIRECTED 11/23/18 [History] L Acidophil/B Lactis/B Longum [Florajen3] 2 tab PO BID 11/23/18 [History] Lactulose 30 ml PO DAILY 11/23/18 [History] Melatonin 3 mg PO DAILY 11/23/18 [History] Sennosides/Docusate Sodium [Senna-Docusate Sodium Tablet] 1 tab PO BID 11/23/18 [History] Simethicone [Gas-X] 250 mg PO DAILY 11/23/18 [History] Past Medical History HEENT History: Reports: None Cardiovascular History: Reports: None Respiratory History: Reports: None Gastrointestinal History: Reports: Chronic Constipation Genitourinary History: Reports: Prostate Disorder Other Genitourinary History: radiation to prostate 3.5 yrs ago 2018 Musculoskeletal History: Reports: Back Pain, Chronic Neurological History: Reports: None Psychiatric History: Reports: Anxiety, Panic Attack Endocrine/Metabolic History: Reports: None Hematologic History: Reports: None Immunologic History: Reports: None Oncologic (Cancer) History: Reports: Prostate Dermatologic History: Reports: None - Infectious Disease History Infectious Disease History: Reports: Chicken Pox, Measles - Past Surgical History Head Surgeries/Procedures: Reports: None HEENT Surgical History: Reports: None Cardiovascular Surgical History: Reports: None GI Surgical History: Reports: Appendectomy Musculoskeletal Surgical History: Reports: Other (See Below) Other Musculoskeletal Surgeries/Procedures:: back surgery x3 Social & Family History - Family History Family Medical History: Noncontributory - Caffeine Use Caffeine Use: Reports: None ED ROS GENERAL - Review of Systems Review Of Systems: Comprehensive ROS is negative, except as noted in HPI. ED EXAM, GI/ABD - Physical Exam Exam: See Below Exam Limited By: No Limitations General Appearance: Alert, Moderate Distress Eyes: Bilateral: EOMI Ears: Normal External Exam, Normal TMs Nose: Normal Inspection Throat/Mouth: Normal Inspection Head: Atraumatic, Normocephalic Neck: Normal Inspection Respiratory/Chest: No Respiratory Distress, Lungs Clear, Normal Breath Sounds Cardiovascular: Normal Peripheral Pulses, Regular Rate, Rhythm GI/Abdominal Exam: Soft, Guarding, Tender, Abnormal Bowel Sounds (hypoactive), Other (colostomy present). No: Normal Bowel Sounds, Distended Back Exam: Full Range of Motion Extremities: Normal Inspection, Normal Range of Motion Neurological: Alert, Oriented, Normal Cognition Psychiatric: Anxious Skin Exam: Warm, Dry, Intact, Normal Color Course - Vital Signs Last Recorded V/S: Last Vital Signs Temp 97.5 F 01/09/19 21:07 Pulse 70 01/09/19 21:07 Resp 20 01/09/19 21:07 BP 143/75 H 01/09/19 21:07 Pulse Ox 98 01/09/19 21:07 - Orders/Labs/Meds Labs: Laboratory Tests 01/09/19 01/09/19 01/09/19 Range/Units 21:10 21:10 21:10 WBC 11.7 H (5.0-10.0) 10^3/uL RBC 3.81 L (4.6-6.2) 10^6/uL Hgb 12.7 L (14.0-18.0) g/dL Hct 36.6 L (40.0-54.0) % MCV 96.1 (80-100) fL MCH 33.3 (27.0-34.0) pg MCHC 34.7 (33.0-35.0) g/dL Plt Count 297 (150-450) 10^3/uL Neut % (Auto) 71.8 (42.2-75.2) % Lymph % (Auto) 15.2 L (20.5-50.1) % [place] % (Auto) 10.4 H (2-8) % Eos % (Auto) 2.4 (1.0-3.0) % Baso % (Auto) 0.2 (0.0-1.0) % Sodium 139 (135-145) mmol/L Potassium 3.7 (3.6-5.0) mmol/L Chloride 101 (101-111) mmol/L Carbon Dioxide 28.0 (21.0-31.0) mmol/L Anion Gap 13.7 BUN 16 (7-18) mg/dL Creatinine 0.7 (0.6-1.3) mg/dL Est Cr Clr Drug Dosing TNP Estimated GFR (MDRD) > 60 BUN/Creatinine Ratio 22.85 Glucose 127 H (74-105) mg/dL Lactic Acid 1.7 (0.5-2.2) mmol/L Calcium 9.2 (8.4-10.2) mg/dl Magnesium 1.8 (1.8-2.5) mg/dL Total Bilirubin 0.6 (0.2-1.0) mg/dL AST 15 (10-42) IU/L ALT 9 L (10-60) IU/L Alkaline Phosphatase 45 (42-121) IU/L Total Protein 7.0 (6.7-8.2) g/dl Albumin 4.2 (3.2-5.5) g/dl Globulin 2.8 Albumin/Globulin Ratio 1.50 Amylase 75 (28-100) U/L Lipase 28 (22-51) U/L Urine Color (YELLOW) Urine Appearance (CLEAR) Urine pH (5.0-9.0) Ur Specific [place] (1.005-1.030) Urine Protein (NEGATIVE) Urine Glucose (UA) (NEGATIVE) Urine Ketones (NEGATIVE) Urine Occult Blood (NEGATIVE) Urine Nitrite (NEGATIVE) Urine Bilirubin (NEGATIVE) Urine Urobilinogen (0.2-1.0) mg/dL Ur Leukocyte Esterase (NEGATIVE) 01/09/19 Range/Units 23:15 WBC (5.0-10.0) 10^3/uL RBC (4.6-6.2) 10^6/uL Hgb (14.0-18.0) g/dL Hct (40.0-54.0) % MCV (80-100) fL MCH (27.0-34.0) pg MCHC (33.0-35.0) g/dL Plt Count (150-450) 10^3/uL Neut % (Auto) (42.2-75.2) % Lymph % (Auto) (20.5-50.1) % [place] % (Auto) (2-8) % Eos % (Auto) (1.0-3.0) % Baso % (Auto) (0.0-1.0) % Sodium (135-145) mmol/L Potassium (3.6-5.0) mmol/L Chloride (101-111) mmol/L Carbon Dioxide (21.0-31.0) mmol/L Anion Gap BUN (7-18) mg/dL Creatinine (0.6-1.3) mg/dL Est Cr Clr Drug Dosing Estimated GFR (MDRD) BUN/Creatinine Ratio Glucose (74-105) mg/dL Lactic Acid (0.5-2.2) mmol/L Calcium (8.4-10.2) mg/dl Magnesium (1.8-2.5) mg/dL Total Bilirubin (0.2-1.0) mg/dL AST (10-42) IU/L ALT (10-60) IU/L Alkaline Phosphatase (42-121) IU/L Total Protein (6.7-8.2) g/dl Albumin (3.2-5.5) g/dl Globulin Albumin/Globulin Ratio Amylase (28-100) U/L Lipase (22-51) U/L Urine Color Yellow (YELLOW) Urine Appearance Slightly cloudy (CLEAR) Urine pH 7.0 (5.0-9.0) Ur Specific [place] 1.015 (1.005-1.030) Urine Protein Negative (NEGATIVE) Urine Glucose (UA) Negative (NEGATIVE) Urine Ketones Negative (NEGATIVE) Urine Occult Blood Negative (NEGATIVE) Urine Nitrite Negative (NEGATIVE) Urine Bilirubin Negative (NEGATIVE) Urine Urobilinogen 0.2 (0.2-1.0) mg/dL Ur Leukocyte Esterase Negative (NEGATIVE) Meds: Medications Discontinued Medications Generic Name Dose Route Start Last Admin Trade Name Freq PRN Reason Stop Dose Admin Hydromorphone HCl 1 mg 01/09/19 21:05 01/09/19 21:19 Dilaudid IVPUSH 01/09/19 21:06 1 mg ONETIME ONE Administration Hydromorphone HCl 1 mg 01/09/19 21:33 01/09/19 21:46 Dilaudid IVPUSH 01/09/19 21:34 1 mg ONETIME ONE Administration Sodium Chloride 1,000 mls @ 150 mls/hr 01/09/19 21:06 01/09/19 21:20 Normal Saline IV 01/10/19 03:45 150 mls/hr .BOLUS ONE Administration Iopamidol 75 ml 01/09/19 21:08 01/09/19 21:42 Isovue-300 (61%) IVPUSH 01/09/19 21:09 75 ml ONETIME ONE Administration Ondansetron HCl 4 mg 01/09/19 21:06 01/09/19 21:18 Zofran IV 01/09/19 21:07 4 mg ONETIME ONE Administration Departure - Departure Time of Disposition: 23:50 Disposition: DC/Tfer to Acute Hospital 02 Condition: Undetermined Clinical Impression: Colostomy complication, unspecified, Hx of prostatic malignancy Abdominal pain Qualifiers: Abdominal location: lower abdomen, unspecified Qualified Code(s): R10.30 - Lower abdominal pain, unspecified - Discharge Information Referrals: Sallie Stapleton, [employer] PL[employer]ING MANAGER [Primary Care Provider] - Forms: ED Department Discharge
== END 2019-01-09 23:53 ==
LOC: DL.ED 21:04
DX: K94.00 Colostomy complication, unspecified (principal); Z85.46 Personal history of malignant neoplasm of prostate; F41.0 Panic disorder [episodic paroxysmal anxiety]; Z90.49 Acquired absence of other specified parts of digestive tract; Z88.5 Allergy status to narcotic agent; Z88.8 Allergy status to other drugs, medicaments and biological substances; Z79.899 Other long term (current) drug therapy
CPT/HCPCS: 36415; 74177; 80053; 81003; 82150; 83605; 83690; 83735; 85025; 87040; 96361; 96374; 96375; 99285; J1170; J2405; J7030; Q9967; 99284